=== PATIENT | female | born 1960 | race Caucasian/White ===

== ENCOUNTER 2016-06-01 16:13 | Emergency (ER) | payer OTHER ==
[~2016-06-01] VITALS: Ht 162.6 cm; Wt 78.8 kg
[2016-06-01 16:14] VITALS: Ht 162.6 cm; Wt 78.8 kg
[2016-06-01] MEDS ORDERED: ACETAMINOPHEN 500 MG TAB PO STA (19:27)
[2016-06-01] MEDS ORDERED: IBUPROFEN 600 MG TAB PO ONE (19:30)
--- NOTE | 2016-06-01 20:13 | RADRPT ---
PROCEDURE: XR Chest. CLINICAL INDICATION: Cough and fever. TECHNIQUE: Single frontal view. COMPARISON: None. FINDINGS: The lungs are clear. The heart size is normal. There is no pleural effusion. There is no pneumothorax. IMPRESSION: 1. Normal chest radiograph. RPTAT: QQ .Murray Vo MD, Date Time Electronically viewed and signed by .Murray Vo MD, on 06/01/2016 20:13 .R/
--- NOTE | 2016-06-01 21:04 | ERD ---
ER Documentation Chief Complaint Date/Time DATE: 06/01/16 TIME: 21:01 Chief Complaint COUGH SINCE LAST NIGHT HPI This 55 year old female who presents to the emergency department today complaining of cough and fever that started yesterday. Patient is also complaining of headache and body aches and runny nose. She has had no nausea or vomiting. Not taking any medication for the fever. ROS All systems reviewed and are negative except as per history of present illness. Medications Home Meds Active Scripts Hydrocodone/Acetaminophen (Ben Wheeler 5-325 Tablet) 1 Each Tablet, 1 TAB PO Q6H Y for PAIN, #10 TAB Prov:HOANG HARRISC 06/01/16 Guaifenesin-Dextromethorphan* (Robitussin* DM) 100MG/10MG/5ML Syrup, 10 ML PO Q4H Y for COUGH for 7 Days, ML Prov:HOANG HARRISC 06/01/16 Acetaminophen* (Tylophen*) 500 Mg Capsule, 1 CAP PO Q6H Y for PAIN AND OR ELEVATED TEMP, #50 CAP Prov:HOANG HARRISC 06/01/16 Ibuprofen* (Motrin*) 600 Mg Tab, 600 MG PO Q6, #30 TAB Prov:HOANG HARRISC 06/01/16 Oseltamivir Phosphate* (Tamiflu*) 75 Mg Capsule, 75 MG PO BID for 5 Days, CAP Prov:HOANG HARRISC 06/01/16 PMhx/Soc Medical and Surgical Hx: pt denies Medical Hx, pt denies Surgical Hx Hx Alcohol Use: No Hx Substance Use: No Hx Tobacco Use: No Physical Exam Vitals Vital Signs Date Time Temp Pulse Resp B/P Pulse Ox O2 Delivery O2 Flow Rate FiO2 06/01/16 16:14 101.8 91 24 120/60 97 Physical Exam Const: No acute distress Head: Atraumatic Eyes: Normal Conjunctiva ENT: Ears TMs. Nose no drainage. Throat no erythema no exudate. Neck: Full range of motion..~ No meningismus. Resp: Clear to auscultation bilaterally Cardio: Regular rate and rhythm, no murmurs Abd: Soft, non tender, non distended. Normal bowel sounds Skin: No petechiae or rashes Back: No midline or flank tenderness Ext: No cyanosis, or edema Neur: Awake and alert Psych: Normal Mood and Affect Results 24 hrs Current Medications Medications (Trade) Dose Ordered Sig/Alon Route PRN Reason Start Time Stop Time Status Last Admin Dose Admin Acetaminophen (Tylenol Tab) 500 mg ONCE STAT PO 06/01/16 19:27 06/01/16 19:28 DC 06/01/16 19:37 Ibuprofen (Motrin) 600 mg ONCE ONCE PO 06/01/16 19:30 06/01/16 19:31 DC 06/01/16 19:[id number] [place] [address] Radiology Main Line: [phone] DIAGNOSTIC IMAGING REPORT Patient: MARLENY LANCASTER : 1960 Age: 55 Sex: F MR #: [id number] DOS: 06/01/16 0000 Ordering MD: HOANG HARRIS PA-C Location: [facility] Room/Bed: PROCEDURE: XR Chest. CLINICAL INDICATION: Cough and fever. TECHNIQUE: Single frontal view. COMPARISON: None. FINDINGS: The lungs are clear. The heart size is normal. There is no pleural effusion. There is no pneumothorax. IMPRESSION: 1. Normal chest radiograph. RPTAT: QQ .Murray Vo MD, MD Date Time Electronically viewed and signed by .Murray Vo MD, on 06/01/2016 20:13 .R/ CC: HOANG HARRIS PA-C Procedures/MDM This is a 55 old female who presents to the emergency department today complaining of fever and cough that started yesterday. Given the patient was febrile here in the emergency department and she was persistently coughing and did obtain a chest x-ray. Chest x-ray is negative. There is low suspicion for pneumonia, PE, abscess, pneumothorax. I have low suspicion for strep pharyngitis, peritonsillar abscess , retropharyngeal abscess, otitis media, PNA, sinusitis, abscess, meningitis, sepsis, or other acute infectious bacterial process. Patient was given Tylenol and Motrin here in the emergency department. Patient symptoms at this time consistent with viral syndrome or influenza-like symptoms. Patient will be given a prescription prestriction for Tamiflu, Ben Wheeler, Motrin, Tylenol and Robitussin. Departure Diagnosis: Primary Impression: Influenza-like symptoms Condition: HOANG Richards PA-C Jun 01, 2016 21:04
[2016-06-01] MEDS ORDERED: OSLT75C PO (21:05)
[2016-06-01] MEDS ORDERED: IBUP-1542 PO (21:05)
[2016-06-01] MEDS ORDERED: ACET500C5 PO (21:06)
[2016-06-01] MEDS ORDERED: UDROBDM PO (21:06)
[2016-06-01] MEDS ORDERED: HYDR-906 PO (21:07)
[2016-06-01 21:20] VITALS: PULSE 80; RESP 20; TEMP 97.8
== END 2016-06-01 21:20 | disposition home or self-care (01) ==
LOC: FTE 16:13
DX: R05 Cough (principal); R50.9 Fever, unspecified; R51 Headache; R09.89 Other specified symptoms and signs involving the circulatory and respiratory systems
CPT/HCPCS: 71010

== ENCOUNTER 2018-05-12 19:51 | Emergency (ER) | END 2018-05-13 00:01 | disposition home or self-care (01) ==